=== PATIENT | female | born 1995 | race Caucasian/White ===

== ENCOUNTER 2019-07-25 11:51 | Emergency (ER) | payer BC ==
[~2019-07-25] VITALS: Ht 172.7 cm; Wt 102.0 kg
[2019-07-25 13:15] VITALS: BP 152/89
[2019-07-25] MEDS: KETOROLAC 30 MG/ML VIAL. IVP ONE (14:00)
[2019-07-25 14:15] LABS: BILIRUBIN,URINE NEGATIVE (NEG); CLARITY,URINE CLEAR; COLOR,URINE YELLOW; NITRITE,URINE NEGATIVE (NEG); PROTEIN,URINE NEGATIVE (NEG-TRACE); UROBILINOGEN,URINE 0.2 mg/dL (0.2 mg/dL)
[2019-07-25 14:25] LABS: BARBITURATES NEG (NEG); BENZODIAZEPINES NEG (NEG); CANNABINOIDS NEG (NEG); COCAINE NEG (NEG); METHADONE NEG (NEG); OPIATES POS (NEG); PHENCYCLIDINE NEG (NEG)
[2019-07-25 14:27] LABS: AMPHETAMINE/METHAMPHETAMINE NEG (NEG); BACTERIA,URINE FEW /HPF (0-FEW); RBC,URINE 0 /HPF (0-2); SQUAMOUS EPITHELIAL CELL,UR MOD /LPF
[2019-07-25 14:28] LABS: BASO # 0.1 x10^3/uL (0.0-0.2); BASO % 1 % (0-3); EOS # 0.1 x10^3/uL (0.0-0.7); EOS % 1 % (0-3); LYMPH # 2.3 x10^3/uL (1.0-4.8); LYMPH % 24 % (24-48); MEAN CORPUSCULAR HEMOGLOBIN 31 pg (25-35); MEAN CORPUSCULAR HGB CONC 34 g/dL (31-37); MEAN CORPUSCULAR VOLUME 90 fL (79-100); MONO # 0.9 x10^3/uL (0.0-1.1); MONO % 10 % (0-9); NEUT # 6.2 x10^3/uL (1.8-7.7); NEUT % 65 % (31-73); PLATELET COUNT 259 x10^3/uL (140-400); RED BLOOD COUNT 4.25 x10^6/uL (3.50-5.40); RED CELL DISTRIBUTION WIDTH 13.6 % (11.5-14.5); WHITE BLOOD COUNT 9.6 x10^3/uL (4.0-11.0)
[2019-07-25] MEDS: MORPHINE SULFATE 2 MG/ML VIAL. IV ONE (14:29)
[2019-07-25 14:36] LABS: CALCIUM 9.5 mg/dL (8.5-10.1); CREATININE 0.9 mg/dL (0.6-1.0); GFR 76.3; POTASSIUM 4.4 mmol/L (3.5-5.1)
[2019-07-25 14:42] LABS: ALBUMIN 4.1 g/dL (3.4-5.0); ALBUMIN/GLOBULIN RATIO 1.3 (1.0-1.7); TOTAL BILIRUBIN 0.8 mg/dL (0.2-1.0); TOTAL PROTEIN 7.3 g/dL (6.4-8.2)
--- NOTE | 2019-07-25 15:08 | RAD ---
Pelvic sonography-transabdominal transvaginal exam Clinical indications: Pelvic pain. Negative test. Transabdominal sonography: Uterus is anteverted in position. The longitudinal AP and transverse dimensions of the uterus are 9.7 cm and 5.1 cm and 5.2 cm respectively. The uterus is poorly visualized by transabdominal exam. Neither ovary is visualized. Therefore, transvaginal sonography will be performed. Transvaginal sonography: An IUD is seen within the central aspect of the uterus which is proper positioning. No uterine mass or fibroid is seen. The endometrial canal measures 4 mm in thickness which is normal. Within the cul-de-sac, there is complex fluid present. The left ovary measures 6.4 cm and 3.2 cm and 3.7 cm in size and contains a simple cyst measuring 3.1 cm. Color Doppler flow is seen within the left ovary. The right ovary measures 5.7 cm and 2.6 m and 2.9 cm in size and contains a complex cyst measuring 3 cm in size. Small exophytic cyst of the right ovary is seen measuring 1.2 cm. There is a moderate amount of free fluid around the right ovary. Color Doppler flow is seen within the right ovary. IMPRESSION: Complex cyst of the right ovary measuring 3 cm in size. Small exophytic cyst of the right ovary measuring 1.2 cm. Moderate amount of free fluid around the right ovary. There is moderate amount of complex fluid within the cul-de-sac which could represent blood or pus. 3.1 cm simple cyst of the left ovary. Color Doppler flow is seen within both ovaries. Electronically signed by: Curtis Alfaro MD (07/25/2019 3:05 PM) [facility]
[2019-07-25] MEDS: CLINDAMYCIN 600MG PREMIX 50 ML IV ONE (16:30)
--- NOTE | 2019-07-25 17:24 | PHYS DOC ---
Past Medical History Past Medical History: Other Additional Past Medical Histor: ADHD Past Surgical History: Other Additional Past Surgical Histo: LIPOMA REMOVAL, WISDOM TEETH Smoking Status: Never Smoker Alcohol Use: None Adult General Chief Complaint Chief Complaint: PELVIC PAIN HPI HPI Patient is a 24 year old female patient with no significant medical history presenting to the ED today complaining of a sharp 8 out of 10 bilateral pelvic pain that suddenly began 3 hours ago prior to coming to the ED. Patient denies any exacerbating or relieving factors to her pain. Denies any nausea vomiting. Denies any unusual vaginal discharge. Denies any concerns for STDs. Reports she has an IUD for the last 3 years. Review of Systems Review of Systems Constitutional: Denies fever or chills [] Eyes: Denies change in visual acuity, redness, or eye pain [] HENT: Denies nasal congestion or sore throat [] Respiratory: Denies cough or shortness of breath [] Cardiovascular: No additional information not addressed in HPI [] GI: Reports pelvic pain, denies nausea, vomiting, bloody stools or diarrhea [] : Denies dysuria or hematuria [] Musculoskeletal: Denies back pain or joint pain [] Integument: Denies rash or skin lesions [] Neurologic: Denies headache, focal weakness or sensory changes [] All other systems were reviewed and found to be within normal limits, except as documented in this note. Current Medications Current Medications Current Medications Medications (Trade) Dose Ordered Sig/[facility] Start Time Stop Time Status Last Admin Dose Admin Clindamycin Phosphate 50 ml @ 100 mls/hr 1X ONCE 07/25/19 16:30 07/25/19 16:59 DC 07/25/19 16:30 100 MLS/HR Ketorolac Tromethamine (Toradol 30mg Vial) 30 mg 1X ONCE 07/25/19 14:00 07/25/19 14:01 DC Morphine Sulfate (Morphine Sulfate) 2 mg 1X ONCE 07/25/19 14:30 07/25/19 14:31 DC 07/25/19 14:29 2 MG Allergies Allergies Allergies Coded Allergies Type Severity Reaction Last Updated Verified No Known Drug Allergies 07/25/19 No Physical Exam Physical Exam Constitutional: Well developed, well nourished, no acute distress, non-toxic appearance. [] HENT: Normocephalic, atraumatic, bilateral external ears normal, oropharynx moist, no oral exudates, nose normal. [] Eyes: PERRLA, EOMI, conjunctiva normal, no discharge. [] Neck: Normal range of motion, no tenderness, supple, no stridor. [] Cardiovascular:Heart rate regular rhythm, no murmur [] Lungs & Thorax: Bilateral breath sounds clear to auscultation [] Abdomen: Bowel sounds normal, soft, no tenderness, no masses, no pulsatile masses. [] Pelvic exam External pelvic appears normal, cervix is not well visualized due to body habitus. Mild adnexal tenderness bilaterally, no CMT Skin: Warm, dry, no erythema, no rash. [] Back: No tenderness, no CVA tenderness. [] Extremities: No tenderness, no cyanosis, no clubbing, ROM intact, no edema. [] Neurologic: Alert and oriented X 3, normal motor function, normal sensory function, no focal deficits noted. [] Psychologic: Affect normal, judgement normal, mood normal. [] Current Patient Data Vital Signs Vital Signs Date Time Temp Pulse Resp B/P (MAP) Pulse Ox O2 Delivery O2 Flow Rate FiO2 07/25/19 14:29 18 100 Room Air 07/25/19 13:15 98.1 80 152/89 (110) 98.1 Lab Values Laboratory Tests Test 07/25/19 13:00 07/25/19 13:05 07/25/19 14:15 Urine Collection Type Unknown Urine Color Yellow Urine Clarity Clear Urine pH 5.0 Urine Specific Jet 1.025 Urine Protein Negative mg/dL (NEG-TRACE) Urine Glucose (UA) Negative mg/dL (NEG) Urine Ketones (Stick) Negative mg/dL (NEG) Urine Blood Negative (NEG) Urine Nitrite Negative (NEG) Urine Bilirubin Negative (NEG) Urine Urobilinogen Dipstick 0.2 mg/dL (0.2 mg/dL) Urine Leukocyte Esterase Negative (NEG) Urine RBC 0 /HPF (0-2) Urine WBC 1-4 /HPF (0-4) Urine Squamous Epithelial Cells Mod /LPF Urine Bacteria Few /HPF (0-FEW) Urine Mucus Mod /LPF Urine Opiates Screen Pos (NEG) Urine Methadone Screen Neg (NEG) Urine Barbiturates Neg (NEG) Urine Phencyclidine Screen Neg (NEG) Urine Amphetamine/Methamphetamine Neg (NEG) Urine Benzodiazepines Screen Neg (NEG) Urine Cocaine Screen Neg (NEG) Urine Cannabinoids Screen Neg (NEG) Urine Ethyl Alcohol Neg (NEG) POC Urine HCG, Qualitative Hcg negative (Negative) White Blood Count 9.6 x10^3/uL (4.0-11.0) Red Blood Count 4.25 x10^6/uL (3.50-5.40) Hemoglobin 13.0 g/dL (12.0-15.5) Hematocrit 38.0 % (36.0-47.0) Mean Corpuscular Volume 90 fL (79-100) Mean Corpuscular Hemoglobin 31 pg (25-35) Mean Corpuscular Hemoglobin Concent 34 g/dL (31-37) Red Cell Distribution Width 13.6 % (11.5-14.5) Platelet Count 259 x10^3/uL (140-400) Neutrophils (%) (Auto) 65 % (31-73) Lymphocytes (%) (Auto) 24 % (24-48) Monocytes (%) (Auto) 10 % (0-9) H Eosinophils (%) (Auto) 1 % (0-3) Basophils (%) (Auto) 1 % (0-3) Neutrophils # (Auto) 6.2 x10^3/uL (1.8-7.7) Lymphocytes # (Auto) 2.3 x10^3/uL (1.0-4.8) Monocytes # (Auto) 0.9 x10^3/uL (0.0-1.1) Eosinophils # (Auto) 0.1 x10^3/uL (0.0-0.7) Basophils # (Auto) 0.1 x10^3/uL (0.0-0.2) Sodium Level 139 mmol/L (136-145) Potassium Level 4.4 mmol/L (3.5-5.1) Chloride Level 102 mmol/L (98-107) Carbon Dioxide Level 26 mmol/L (21-32) Anion Gap 11 (6-14) Blood Urea Nitrogen 18 mg/dL (7-20) Creatinine 0.9 mg/dL (0.6-1.0) Estimated GFR (Cockcroft-Gault) 76.3 BUN/Creatinine Ratio 20 (6-20) Glucose Level 88 mg/dL (70-99) Calcium Level 9.5 mg/dL (8.5-10.1) Total Bilirubin 0.8 mg/dL (0.2-1.0) Aspartate Amino Transferase (AST) 14 U/L (15-37) L Alanine Aminotransferase (ALT) 15 U/L (14-59) Alkaline Phosphatase 54 U/L (46-116) Total Protein 7.3 g/dL (6.4-8.2) Albumin 4.1 g/dL (3.4-5.0) Albumin/Globulin Ratio 1.3 (1.0-1.7) Ethyl Alcohol Level < 10 mg/dL (0-10) Laboratory Tests 07/25/19 14:15 Laboratory Tests 07/25/19 14:15 Microbiology 07/25/19 Wet Prep - Final, Complete EKG EKG [] Radiology/Procedures Radiology/Procedures []PROCEDURE: PELVIS W/TV Pelvic sonography-transabdominal transvaginal exam Clinical indications: Pelvic pain. Negative test. Transabdominal sonography: Uterus is anteverted in position. The longitudinal AP and transverse dimensions of the uterus are 9.7 cm and 5.1 cm and 5.2 cm respectively. The uterus is poorly visualized by transabdominal exam. Neither ovary is visualized. Therefore, transvaginal sonography will be performed. Transvaginal sonography: An IUD is seen within the central aspect of the uterus which is proper positioning. No uterine mass or fibroid is seen. The endometrial canal measures 4 mm in thickness which is normal. Within the cul-de-sac, there is complex fluid present. The left ovary measures 6.4 cm and 3.2 cm and 3.7 cm in size and contains a simple cyst measuring 3.1 cm. Color Doppler flow is seen within the left ovary. The right ovary measures 5.7 cm and 2.6 m and 2.9 cm in size and contains a complex cyst measuring 3 cm in size. Small exophytic cyst of the right ovary is seen measuring 1.2 cm. There is a moderate amount of free fluid around the right ovary. Color Doppler flow is seen within the right ovary. IMPRESSION: Complex cyst of the right ovary measuring 3 cm in size. Small exophytic cyst of the right ovary measuring 1.2 cm. Moderate amount of free fluid around the right ovary. There is moderate amount of complex fluid within the cul-de-sac which could represent blood or pus. 3.1 cm simple cyst of the left ovary. Color Doppler flow is seen within both ovaries. Electronically signed by: Solange Alfaro MD (07/25/2019 3:05 PM) [facility] DICTATED and SIGNED BY: SOLANGE ALFARO MD DATE: 07/25/19 0624 Course & Med Decision Making Course & Med Decision Making Pertinent Labs and Imaging studies reviewed. (See chart for details) This is a 24-year-old female patient presenting to the ED today with complaints of pelvic pain that began 3 hours prior to coming to the ED. Negative urine hCG, urine analysis is negative for infection, wet prep noted for altered belinda but no clue cells. Ultrasound of the pelvic interpreted by radiologist noted for complex cyst of the right ovary measuring 3 cm in size. Small exophytic cyst of the right ovary measuring 1.2 cm. Moderate amount of free fluid around the right ovary. There is moderate amount of complex fluid within the cul-de-sac which could represent blood or pus. 3.1 cm simple cyst of the left ovary. Above pelvic ultrasound results were discussed with Dr. Aldrich. She requested we sent patient on clindamycin and start her on pain medicines. First does of clindamycin given in the ED. Discharged to home. Follow-up with Dr. Aldrich in the course of this week. Dragon Disclaimer Dragon Disclaimer This electronic medical record was generated, in whole or in part, using a voice recognition dictation system. Departure Departure Impression: Primary Impression: Bilateral ovarian cysts Disposition: HOME, SELF-CARE Condition: STABLE Referrals: NEFTALY REZA (PCP) NATALY KENT MD follow up in the course of this week Patient Instructions: Ovarian Cyst, [id number] Additional Instructions: You were evaluated in the emergency room and noted to have ovarian cysts. We put you on antibiotics and pain medicine. Please follow-up with the provided [employer] in the course of this week. Try and call the office tomorrow for a follow-up appointment. Consider heating pad on your pelvic region. Scripts Naproxen (NAPROXEN) 500 Mg Tablet. 1 TAB PO BID, #20 TAB 0 Refills Prov: MUTUNGA,GABRIELE BID WRITER 07/25/19 Hydrocodone/Apap 5-325 (NORCO 5-325 TABLET) 1 Each Tablet 1-2 TAB PO Q6HRS, #20 TAB Prov: MUTUNGA,GABRIELE BID WRITER 07/25/19 Clindamycin Hcl (CLINDAMYCIN HCL) 300 Mg Capsule 1 CAP PO TID, #21 CAP Prov: GABRIELE SPANGLER APRN 07/25/19 GABRIELE SPANGLER APRN Jul 25, 2019 17:24
[2019-07-25] MEDS ORDERED: HYDR-3164 PO (17:30)
[2019-07-25] MEDS ORDERED: NAPR500T8 PO (17:30)
[2019-07-25] MEDS ORDERED: CLIN300C8 PO (17:30)
[2019-07-26 19:09] LABS: GC PROBE Negative (Negative)
== END 2019-07-25 17:45 | disposition home or self-care (01) ==
LOC: ER 11:51
DX: N83.202 Unspecified ovarian cyst, left side (principal); N83.201 Unspecified ovarian cyst, right side; R10.2 Pelvic and perineal pain; F90.8 Attention-deficit hyperactivity disorder, other type; Z98.890 Other specified postprocedural states
CPT/HCPCS: 36415; 76830; 76856; 80053; 80307; 81001; 81025; 85025; 87491; 87591; 96374; 99285; G0480; J2270; J3490; Q0111